=== PATIENT | male | born 1985 | race Caucasian/White ===

== ENCOUNTER → 2016-07-30 | Outpatient (CLI) | payer OTHER ==
[~2016-07-30] VITALS: Ht 175.3 cm; Wt 87.4 kg
[~2016-07-30] MED LIST: CLARITIN10 MG PO; DICLOFENAC SOD50 M1 PO; HYDROCODON-ACE1 EAC1 PO; MEDROL DOSPAK21 TA1 PO; METHOCARBAMOL500 M2 PO; METHOCARBAMOL750 MG PO; NABUMETONE 750750 M1 PO; NORCO 5-325 TA1 EACH PO; NUCYNTA50 MG PO; PREDNISONE50 MG PO; PROTONIX40 MG PO; PROVENTIL HFA6.7 G1; PROVENTIL HFA6.7 G1 PO; SINGULAIR 10 MG10 M1 PO; TRAZODONE 150150 M1 PO; ZOFRAN ODT4 MG PO
--- NOTE | ~2016-07-30 | HPC ---
[facility] [address] [place] [address] PAIN MANAGEMENT CONSULTATION Name: RUSLAN ESTRADA Room #: REG [facility].#: [id number] Admission: 07/30/16 Attend Phys: Arjun Astudillo DO Discharge: Date of : 81 Report #: [id number] THIS REPORT FOR: //name// CC: Arjun Spicer DATE OF SERVICE: 07/30/2016 DATE OF SERVICE: 07/30/2016 CHIEF COMPLAINT: Neck pain, left upper extremity pain and paresthesias. HISTORY OF PRESENT ILLNESS: As you know, the patient is a very pleasant 31-year-old male, who returns today in followup visit with recurrent neck pain, left upper extremity pain and paresthesia. The patient states the pain is chronic in nature, describes the pain as numbness, tingling, sharp and constant. States the patient's pain is exacerbated with sleeping sitting and repositioning. The patient states epidural injections have been beneficial for alleviating symptoms in the past. He returns per the request of his primary care physician for possible cervical epidural injection. He denies new injury or new trauma that may have led to symptoms. He does indicate his pain is more intense than prior, same distribution of symptoms as previous evaluation. ALLERGIES: SULFA. CURRENT MEDICATIONS: None. SOCIAL HISTORY: The patient denies tobacco, alcohol or IV or illicit drug use. He is working. He is unaccompanied today. REVIEW OF SYSTEMS: Positive for neck pain, left upper extremity pain and paresthesias, intermittent insomnia, difficulty with going about activities of daily living secondary to pain. All other review of systems negative per 12-point review of systems other than those listed in history of present illness. IMAGING STUDY: Obtained on 10/09/2010 shows left paracentral disk and foraminal disk protrusion at C6-C7. PHYSICAL EXAMINATION: GENERAL: Well-developed, well nourished, well hydrated 31-year-old male appearing stated age, placing current pain score 6/10. HEENT: Normocephalic, atraumatic. Pupils equal, round, reactive to light. Extraocular muscles are intact. Sclerae nonicteric without injection. NEUROLOGIC: Cranial nerves 2 through 12 grossly intact. LUNGS: Clear. No wheezes, rhonchi, rales. [facility] [address] [place] [address] PAIN MANAGEMENT CONSULTATION Name: RUSLAN ESTRADA Room #: REG [facility].#: [id number] Admission: 07/30/16 Attend Phys: Arjun Astudillo DO Discharge: Date of : 83 Report #: [id number] CARDIOVASCULAR: Regular. No appreciable gallop or rub. ABDOMEN: Soft, nontender, nondistended. EXTREMITIES: Show no clubbing, no cyanosis, no edema. MUSCULOSKELETAL: Upper extremity strength appears symmetrical 5/5, some giveaway strength noted with biceps flexion on the left when compared to right. There is decreased tactile sensation along the C7 dermatome on the right when compared to left. Spurling's test positive left. ASSESSMENT: 1. Cervical radiculopathy. 2. Displacement of cervical intervertebral disk with radiculopathy. 3. Chronic intractable pain. PLAN: 1. The patient has returned today in followup visit per the request of his primary care physician to undergo cervical epidural injection under fluoroscopic guidance. The patient has done very well with previous cervical epidural injections, but did have a complication where he began to experience some lower extremity numbness and tingling. 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 It was believed that his symptoms in the lower extremities are due to increased pressure in the cerebrospinal fluid after a cervical injection. The symptoms he subsequently had after the injection lasted only about 6 hours and was resolved without issue. We discussed this issue with the patient today stating that there is possibility he may experience similar symptoms with today's injection. We also discussed other risks and benefits of the procedure. These risks include but are not necessarily limited to bleeding, bruising, infection, worsening pain, no relief of pain, also risk of temporary or permanent muscle weakness, temporary or permanent nerve damage, post-dural puncture headache, similar lower extremity numbness and tingling, as he had seen in the past in depth. The patient states understood and wished to proceed. 2. No medication changes were made at today's visit. The patient to continue current medical therapy as previously prescribed. 3. The patient has been provided a prescription for MRI of cervical spine. If the patient does not notice improvement in symptoms with his injection by Friday of next week, I recommend the patient undergo MRI of the cervical spine to determine if any changes have been made. He ultimately may need to look toward surgical options. We are hopeful he will see improvement with today's procedure, but we have offered the patient the repeat MRI, as his pain symptoms have intensified, distribution appears very similar, but he had a fairly significant amount of difficulty with the injection with increasing pain and paresthesias prior to the placement of the needle within the epidural space. He may ultimately need to undergo this MRI and was given the prescription today, no contrast. PROCEDURE NOTE [address] [address] PAIN MANAGEMENT CONSULTATION Name: RULSAN ESTRADA [id number] Admission: 07/30/16 Attend Phys: Arjun Astudillo DO Discharge: Date of : 83 Report #: [id number] DESCRIPTION OF PROCEDURE: Cervical epidural steroid injection under fluoroscopic guidance. After obtaining written consent, the patient was taken back to fluoroscopy suite, placed in prone position with separate pillows under chest and forehead to decrease cervical lordosis. Cervical epidural spaces were identified by AP fluoroscopy. Skin and subcutaneous tissue overlying the target site of injection was anesthetized with 3 mL of 1% lidocaine. A #20-gauge 3-1/2 inch Tuohy needle advanced under fluoroscopic guidance towards the epidural space using a midline approach. Epidural space was being approached with the needle, when the patient began to experience increasing pain and paresthesias that radiated down the left arm. We had not reached the epidural space by this time. The patient indicated pain intensified. He jerked quite quickly and pain was then noticed all the way down the arm into the hand. Needle was retracted from its position, which was well above the epidural space. The patient began to experience cold, clammy sensations, sweating and decreased blood pressure. It was determined the patient was experiencing a vasovagal response. He was given partial medication to help with pain at the time injecting 1 mL of triamcinolone 40 mg per mL and 2 mL of bupivacaine 0.5%. Needle was removed immediately. The patient was then placed in a supine position on the gurney next to the procedure bed. He was then taken to the recovery room where he was placed into Trendelenburg position. The patient to remain in Trendelenburg position and monitored from nursing staff and myself. His blood pressure did return to normal, as did his heart rate. His sensations did improve. He continued to experience some generalized sensations of tingling, which typically is found with a vasovagal responses. After a 45-minute timeframe of monitoring within our office, the patient felt well enough to return home. We did have the patient given numbers of the clinic here to contact the clinic with questions or concerns, he is to contact us tomorrow to advise of his physical condition. He is also to call again on . If he has not improved from that standpoint, would recommend an MRI of the cervical region. Further evaluation may be necessary. I believe the pathology in the cervical region may have progressed and his pain was intensified before we reached the epidural space causing the vasovagal response. He did felt ultimately meet are discharge criteria and was discharged home with the caveat that he needs to contact our clinic in 24 and again in 48 hours. <ELECTRONICALLY SIGNED> By: Arjun Astudillo DO 08/05/16 0854 0705 0814 Arjun Astudillo DO /nt
[2016-07-30 13:54] VITALS: BP 119/79
== END | disposition home or self-care (01) ==
LOC: PAIN 07:08
DX: M50.123 Cervical disc disorder at C6-C7 level with radiculopathy (principal); G89.29 Other chronic pain; I48.91 Unspecified atrial fibrillation; Z87.891 Personal history of nicotine dependence

== ENCOUNTER → 2016-08-02 | Outpatient (CLI) | payer OTHER ==
[~2016-08-02] VITALS: Ht 175.3 cm; Wt 87.1 kg
--- NOTE | ~2016-08-02 | HPC ---
[facility] [place] [address] PAIN MANAGEMENT CONSULTATION Name: RUSLAN ESTRADA Room #: REG [facility].#: [id number] Admission: 08/02/16 Attend Phys: Yair Astudillo DO Discharge: Date of : 83 Report #: [id number] THIS REPORT FOR: //name// CC: Ganesh Astudillo The patient is a 31-year-old gentleman, prior seen [address] Arjun Astudillo for concern for cervical radiculopathy radiating to left upper arm. The patient apparently had had similar symptoms, treated in July and August 2014, two cervical epidural injections attenuated left radicular symptoms. Symptoms apparently recurred without specific antecedent trauma and overuse. The patient's physical exam 07/30/2016 corroborated concern for left cervical radiculopathy. Apparently cervical epidural injection attempted at that time, but procedure notes indicated the patient had somewhat of a vasovagal response and the procedure was aborted. He presents to the pain clinic today noting ongoing cervical radicular symptoms, pain in the neck, left shoulder, arm and posterior aspect of his head. PHYSICAL EXAMINATION: Shows a 31-year-old gentleman, BMI is 28.3 kilograms per meter squared. Vital signs show blood pressure 130/76, pulse 70s, respirations 14. Cervical range of motion is limited. Positive Lhermitte's symptoms in the left C6 radicular pattern. There is some slight decreased to left biceps strength that is slightly diminished to the left biceps deep tendon reflex. Grasp is symmetric. Tinel's is negative. 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 The C7-T1 interspace appears fairly unremarkable. ASSESSMENT: Symptomatic cervical radiculopathy. RECOMMENDATION: We elected to proceed with epidural injection under fluoroscopy today. Given that it appears Dr. Astudillo, did do a 40 mg essentially "trigger point injection" 3 days ago. I will attenuate the steroid dose to 60 mg. ASSESSMENT: Symptomatic cervical radiculopathy. PROCEDURE: Cervical epidural steroid injection under fluoroscopy. PROCEDURE NOTE: After written and informed consent was obtained including risk of dural puncture, spinal cord trauma, paralysis and increased pain, the patient was taken to the fluoroscopy suite and placed in the prone position, with appropriate abdominal bolstering, neck was flexed, palms under the thighs. Skin was prepped with ChloraPrep. Sterile draping was applied. Skin wheal with 1% Xylocaine was raised. A 22-gauge 3-1/2 inch epidural Tuohy needle was placed [address] [address] PAIN MANAGEMENT CONSULTATION Name: SEANRUSLAN Preciado Room #: [facility]#: [id number] Admission: 08/02/16 Attend Phys: Yair Astudillo DO Discharge: Date of : 83 Report #: [id number] via a midline approach at the C7-T1 interspace, advanced under biplanar fluoroscopy using continuous loss of resistance. With appropriate loss of resistance at the expected depth on lateral view, the glass loss of resistance syringe was disconnected. A low volume extension tubing was connected to the needle and a 5 mL syringe. Negative aspiration for cerebrospinal fluid or blood was noted. A 1 mL of Omnipaque was injected which showed spread within the epidural space on biplanar fluoroscopy. This was followed with 60 mg of triamcinolone plus 1 mL of 1.5% preservative Xylocaine. Needle was withdrawn to the interspinous ligament, 0.5 mL of Xylocaine was used to flush the needle. The needle was then completely withdrawn. The area was cleansed. Band-Aid was applied. The patient was allowed to move off the procedure table and ambulated to the recovery room, monitored for an appropriate period of time, discharged in good and stable condition. The patient was monitored for appropriate period of time. Discharged in good and stable condition. He had no vasovagal symptoms. He did note pain 12/02 on admission, was absent on discharge. <ELECTRONICALLY SIGNED> By: Yair Astudillo DO 08/05/16 1237 [id number] Yair Astudillo DO /nt
[2016-08-02 14:48] VITALS: BP 130/76
== END | disposition home or self-care (01) ==
LOC: PAIN 13:43
DX: M54.12 Radiculopathy, cervical region (principal); I48.91 Unspecified atrial fibrillation; Z87.891 Personal history of nicotine dependence

== ENCOUNTER → 2016-08-13 | Outpatient (CLI) | payer OTHER ==
[~2016-08-13] VITALS: Ht 180.3 cm; Wt 88.5 kg
--- NOTE | ~2016-08-13 | HPC ---
[facility] [place] [address] PAIN MANAGEMENT CONSULTATION Name: RUSLAN ESTRADA Room #: REG [facility].#: [id number] Admission: 08/13/16 Attend Phys: Arjun Astudillo DO Discharge: Date of : 83 Report #: [id number] THIS REPORT FOR: //name// CC: Arjun Spicer MD DATE OF SERVICE: 08/13/2016 REFERRING PHYSICIAN: Ganesh Spicer MD CHIEF COMPLAINT: Neck pain, left upper extremity pain with paresthesias. HISTORY OF PRESENT ILLNESS: As you know, the patient is a very pleasant 31-year-old male returning in followup visit having undergone epidural injection under fluoroscopic guidance with my partner, Dr. Yair Astudillo 1-1/2 weeks ago. The patient indicates about a 60% improvement in overall pain with this epidural. He returns today requesting next in a series of epidural injections. He is also requesting possible changes in medication therapy to address ongoing pain as he travels over the next couple of days to the [facility], returning on Friday for a cervical epidural injection if we receive authorization. He denies new injury or new trauma that may have led to symptoms. His pain continues at a level of 6/10. ALLERGIES: SULFA. CURRENT MEDICATIONS: Loratadine 10 mg once a day and albuterol 2 puffs q.4 hours p.r.n. SOCIAL HISTORY: The patient denies tobacco, alcohol or IV or illicit drug use. He is working, not receiving workmen's compensation, unaccompanied today. IMAGING: No new imaging available. PHYSICAL EXAMINATION: VITAL SIGNS: Blood pressure 147/88, pulse is 73, respiratory rate 16 and unlabored, the patient 98% on room air, height 5 feet 11 inches tall, weight 195 pounds, and BMI calculated 27.2. GENERAL: Well-developed, well-nourished, well-hydrated 31-year-old male, he appears stated age, placing current pain score 6/10. HEENT: Normocephalic, atraumatic. Pupils are equal, round, and reactive to light. Extraocular muscles are intact. Sclerae are nonicteric without injection. NEUROLOGIC: Cranial nerves 2-12 are grossly intact. Speech is fluent. EXTREMITIES: Show no clubbing, no cyanosis, and no edema. MUSCULOSKELETAL: Upper extremity strength appears symmetrical 5/5, some [address] [address] PAIN MANAGEMENT CONSULTATION Name: RUSLAN ESTRADA [id number] Admission: 08/13/16 Attend Phys: Arjun Astudillo DO Discharge: Date of : 83 Report #: [id number] giveaway strength noted with biceps flexion on the left when compared to the right. Decreased tactile sensation along the C7 dermatome on the left when compared to the right. Spurling's test positive on the left. ASSESSMENT: 1. Symptomatic cervical radiculopathy. 2. Displacement of a cervical intervertebral disk. 3. Chronic intractable pain. PLAN: 1. The patient has returned today in followup visit reporting about a 60% improvement in overall pain with the cervical epidural injection provided at our last visit. He has returned requesting to undergo the next in a series of epidural injections. I have advised the patient that I will need to delay this injection until after Friday of this week as this would make a 2-week timeframe. He will have an appointment with us on Friday of next week to undergo a cervical epidural injection with my partner, Dr. Yair Astudillo. The patient is traveling this week and most of next week only time he will be home and available will be on Friday. We have made this appointment for the patient to return to undergo cervical epidural injection in hopes of building on success of this previous cervical injection. 2. The patient will be started on Nucynta 50 mg dose 1 tab p.o. t.i.d. This is being provided for analgesic benefit. The patient was advised to watch for side effects of somnolence, decrease in mental acuity, disorientation, confusion and mental slowing as well as constipation. We will start the patient on the medication immediately, review its efficacy at followup visit. He was given this prescription with a coupon to reduce the cost of this medication to the lowest cost possible. 3. The patient will be started on diclofenac 50 mg dose 1 tab p.o. t.i.d., I have given the patient #90 tablets, advised to take the medication consistently for the next week. We may reduce the dose depending on his improvement at our next visit. 4. We will see the patient back in followup visit hopefully Friday of next week for a cervical epidural injection assuming we received precertification. By: [id number] Arjun Astudillo DO /nt
== END ==
LOC: PAIN 07:06
DX: M54.12 Radiculopathy, cervical region (principal); G89.29 Other chronic pain; I48.91 Unspecified atrial fibrillation

== ENCOUNTER → 2016-08-19 | Outpatient (CLI) | payer OTHER ==
[~2016-08-19] VITALS: Ht 180.3 cm; Wt 89.7 kg
--- NOTE | ~2016-08-19 | HPC ---
[facility] [address] [place] [address] PAIN MANAGEMENT CONSULTATION Name: RUSLAN ESTRADA Room #: REG [facility].#: [id number] Admission: 08/19/16 Attend Phys: Yair Astudillo DO Discharge: Date of : 83 Report #: [id number] THIS REPORT FOR: //name// CC: Ganesh Astudillo SUBJECTIVE: The patient is a pleasant 31-year-old gentleman, prior seen 08/13/2016, by Dr. Arjun Astudillo. He noted 60% improvement following cervical epidural injection #2. He returns to pain clinic today for prior authorized cervical epidural injection #3. He still has ongoing relief, but notes pain is problematic in neck, left shoulder, and arm, rates it up to 7 on a 0-10 visual analog, still has a positive Lhermitte's sign with cervical extension. We talked today about repeating epidural injection under fluoroscopy. If this does not afford adequate relief, he does have a fairly tight stenosis at C5-C6 and C6-C7, diameter of 5.9 mm and 6.4 mm respectively, he may well benefit from surgical decompression at some point. If his symptoms do not burak significantly with today's injection, that would be our next course. ASSESSMENT: Symptomatic cervical radiculopathy. PROCEDURE: Cervical epidural steroid injection under fluoroscopy. PROCEDURE NOTE: After written and informed consent was obtained including risk of dural puncture, spinal cord trauma, paralysis and increased pain, the patient was taken to the fluoroscopy suite and placed in the prone position, with appropriate abdominal bolstering, neck was flexed, palms under the thighs. Skin was prepped with ChloraPrep. Sterile draping was applied. Skin wheal with 1% Xylocaine was raised. A 22-gauge 3-1/2 inch epidural Tuohy needle was placed via a midline approach at the C7-T1 interspace, advanced under biplanar fluoroscopy using continuous loss of resistance. With appropriate loss of resistance at the expected depth on lateral view, the glass loss of resistance syringe was disconnected. A low volume extension tubing was connected to the needle and a 5 mL syringe. Negative aspiration for cerebrospinal fluid or blood was noted. A 1 mL of Omnipaque was injected which showed spread within the epidural space on biplanar fluoroscopy. This was followed with 80 mg of triamcinolone plus 1 mL of 1.5% preservative Xylocaine. Needle was withdrawn to the interspinous ligament, 0.5 mL of Xylocaine was used to flush the needle. The needle was then completely withdrawn. The area was cleansed. Band-Aid was applied. The patient was allowed to move off the procedure table and ambulated to the recovery room, monitored for an appropriate period of time, discharged in good and stable condition. By: [id number] Yair Astudillo DO /nt
[2016-08-19 13:40] VITALS: BP 130/88
== END ==
LOC: PAIN 07:14
DX: M54.12 Radiculopathy, cervical region (principal); Z87.891 Personal history of nicotine dependence

== ENCOUNTER → 2016-11-14 | Outpatient (CLI) | payer OTHER | LOC: CAT 13:32 | DX: R51 Headache (principal) ==

== ENCOUNTER → 2019-08-04 | Outpatient (CLI) | payer OTHER | LOC: ULTRA 08:58 | DX: K76.0 Fatty (change of) liver, not elsewhere classified (principal) ==

== ENCOUNTER → 2020-11-24 | Outpatient (CLI) | payer OTHER | LOC: SJCVCIMAG 07:31 | PROVIDERS: ATTEND Family Medicine | DX: I37.1 Nonrheumatic pulmonary valve insufficiency (principal); R00.2 Palpitations; Z79.899 Other long term (current) drug therapy ==